=== PATIENT | female | born 1980 | race Caucasian/White ===

== ENCOUNTER 2016-05-13 14:27 | Emergency (ER) | payer BC, OTHER ==
[~2016-05-13] VITALS: Ht 167.6 cm; Wt 60.0 kg
[~2016-05-13 14:27] MED LIST: OXYC1SOL5 PO; PREN0.01 PO
[2016-05-13 14:29] VITALS: BP 171/101; PULSE 79; RESP 16; TEMP 97.8; O2SAT 100
[2016-05-13 14:53] VITALS: BP 163/93; PULSE 67; RESP 18; O2SAT 98
[2016-05-13] MEDS ORDERED: hydrALAZINE HCL 20 MG/ML VIAL IV PUSH ONE ×2 (15:00→15:30)
[2016-05-13] MEDS ORDERED: SODIUM CHLORIDE 0.9% FLUSH 5 ML FLUSH IVF PRN (15:00)
[2016-05-13 15:03] VITALS: O2SAT 100
[2016-05-13] MEDS ORDERED: diphenhydrAMINE HCL 50 MG/ML VIAL IVP ONE (15:15)
[2016-05-13] MEDS ORDERED: METOCLOPRAMIDE HCL 10 MG/2 ML VIAL IVP ONE (15:15)
[2016-05-13 15:26] VITALS: BP 135/87; PULSE 98
[2016-05-13 15:44] LABS: AUTOMATED NEUTROPHIL # 5.7 TH/MM3 (1.8-7.7); BASOPHIL # 0.1 TH/MM3 (0-0.2); BASOPHIL % 0.8 % (0.0-2.0); EOSINOPHIL % 0.2 % (0.0-4.0); HEMO FLAGS DIFF FINAL; LYMPH % 13.3 % (9.0-44.0); LYMPHOCYTE # 0.9 TH/MM3 (1.0-4.8); MEAN CORPUSCULAR HEMOGLOBIN 30.8 PG (27.0-34.0); MEAN CORPUSCULAR HGB CONC 33.9 % (32.0-36.0); MONO % 3.2 % (0.0-8.0); NEUT % 82.5 % (16.0-70.0); PLATELET COUNT 197 TH/MM3 (150-450); RED BLOOD COUNT 3.85 MIL/MM3 (4.00-5.30); RED CELL DISTRIBUTION WIDTH 13.9 % (11.6-17.2); WHITE BLOOD COUNT 6.9 TH/MM3 (4.0-11.0)
--- NOTE | 2016-05-13 15:45 | PD ---
HPI Chief Complaint: Hypertension Time Seen by Provider: 14:46 Travel History International Travel<30 days: No Contact w/Intl Traveler<30days: No Traveled to known affect area: No History of Present Illness HPI Patient is a pleasant 35-year-old female who presents the emergency department with complaint of headache, high blood pressure. Patient has a history of preeclampsia during with hypertension, spilling protein into her urine. This proteinuria has continued when she is not and she is followed by Dr. Nava of nephrology. Patient's 24 hour urine protein has always been less than 1 g and so she has never had formal biopsy. Patient states that over the last 24 hours she has felt increasingly dizzy, headache, nauseated. She was seen in clinic by Dr. Lynch, her [employer], who noted her to be hypertensive and 150s over 100s. She had 4+ protein in her urine and the clinic and Dr. Lynch had question for papilledema on exam. Patient is not a headachy person, does not have baseline headache of migraine, tension, cluster headache. She had a previous tubal ligation with her last and does not believe she could be . She was recently started on lisinopril by her PCP for hypertension. PFSH Past Medical History Hypertension: Yes Medical other: Yes (" some kind of kidney problems" ) ?: Not LMP: 05/13/16 : 5 Para: 5 Past Surgical History Section: Yes Social History Alcohol Use: Yes (occ) Tobacco Use: No Substance Use: No Allergies-Medications (Allergen,Severity, Reaction): Coded Allergies: No Known Allergies (Verified , 10/30/15) Reported Meds & Prescriptions Reported Meds & Active Scripts Active Oxycodone/Acetaminophen 5 mg/325 mg 5 mg/325 mg Tab 2 Tab PO Q4H PRN Reported Vit ( Plus) (Prenat Multivit/Swimming Pool Cleaner/Iron/Folic Ac) Tab 1 Tab PO DAILY continue while breast feeding Review of Systems Except as stated in HPI: all other systems reviewed are Neg Physical Exam Narrative GENERAL: Well-appearing female in no acute distress SKIN: Warm and dry. HEAD: Atraumatic. Normocephalic. EYES: Pupils equal and round. Funduscopic exam is limited due to lack of dilated eye exam but I do not appreciate any papilledema. No scleral icterus. No injection or drainage. ENT: No nasal bleeding or discharge. Mucous membranes pink and moist. NECK: Supple CARDIOVASCULAR: Regular rate and rhythm. No murmur appreciated. Initially hypertensive 170s, 140s upon recheck. RESPIRATORY: No accessory muscle use. Clear to auscultation. Breath sounds equal bilaterally. GASTROINTESTINAL: Abdomen soft, non-tender, nondistended. MUSCULOSKELETAL: No edema. NEUROLOGICAL: Awake and alert. No obvious cranial nerve deficits. Motor grossly within normal limits. Normal speech. PSYCHIATRIC: Appropriate mood and affect; insight and judgment normal. Data Data Last Documented VS Vital Signs Date Time Temp Pulse Resp B/P Pulse Ox O2 Delivery O2 Flow Rate FiO2 05/13/16 16:24 71 18 128/79 98 Room Air 05/13/16 14:29 97.8 Orders Basic Metabolic Panel (Bmp) (05/13/16 14:46) Complete Blood Count With Diff (05/13/16 14:46) Urinalysis - C+S If Indicated (05/13/16 14:46) Iv Access Insert/Monitor (05/13/16 14:46) Ecg Monitoring (05/13/16 14:46) Oximetry (05/13/16 14:46) Sodium Chloride 0.9% Flush (Ns Flush) (05/13/16 15:00) Ct Brain W/O Iv Contrast(Rout) (05/13/16 14:46) Hydralazine Inj (Apresoline Inj) (05/13/16 15:00) Diphenhydramine Inj (Benadryl Inj) (05/13/16 15:15) Metoclopramide Inj (Reglan Inj) (05/13/16 15:15) Hydralazine Inj (Apresoline Inj) (05/13/16 15:30) Labs Laboratory Tests Test 05/13/16 05/13/16 15:05 15:14 White Blood Count 6.9 TH/MM3 Red Blood Count 3.85 MIL/MM3 Hemoglobin 11.9 GM/DL Hematocrit 35.0 % Mean Corpuscular Volume 91.0 FL Mean Corpuscular Hemoglobin 30.8 PG Mean Corpuscular Hemoglobin 33.9 % Concent Red Cell Distribution Width 13.9 % Platelet Count 197 TH/MM3 Mean Platelet Volume 9.5 FL Neutrophils (%) (Auto) 82.5 % Lymphocytes (%) (Auto) 13.3 % Monocytes (%) (Auto) 3.2 % Eosinophils (%) (Auto) 0.2 % Basophils (%) (Auto) 0.8 % Neutrophils # (Auto) 5.7 TH/MM3 Lymphocytes # (Auto) 0.9 TH/MM3 Monocytes # (Auto) 0.2 TH/MM3 Eosinophils # (Auto) 0.0 TH/MM3 Basophils # (Auto) 0.1 TH/MM3 CBC Comment DIFF FINAL Differential Comment Sodium Level 136 MEQ/L Potassium Level 3.6 MEQ/L Chloride Level 100 MEQ/L Carbon Dioxide Level 27.0 MEQ/L Anion Gap 9 MEQ/L Blood Urea Nitrogen 15 MG/DL Creatinine 0.67 MG/DL Estimat Glomerular Filtration 101 ML/MIN Rate Random Glucose 74 MG/DL Calcium Level 8.4 MG/DL Urine Color YELLOW Urine Turbidity CLEAR Urine pH 6.5 Urine Specific [place] 1.020 Urine Protein 100 mg/dL Urine Glucose (UA) NEG mg/dL Urine Ketones 80 mg/dL Urine Occult Blood MOD Urine Nitrite NEG Urine Bilirubin NEG Urine Urobilinogen LESS THAN 2.0 MG/DL Urine Leukocyte Esterase NEG Urine RBC 15 /hpf Urine WBC 3 /hpf Urine Squamous Epithelial 1 /hpf Cells Urine Hyaline Casts 3 /lpf Urine Mucus FEW /lpf Microscopic Urinalysis Comment CULT NOT INDICATED MDM Medical Decision Making Medical Screen Exam Complete: Yes Emergency Medical Condition: Yes Medical Record Reviewed: Yes Differential Diagnosis 35-year-old female with history of underlying renal disease here with headache, nausea, dizziness and proteinuria. Differential includes renal dysfunction, renal failure, electrolyte abnormality, nephrotic syndrome, hypertension, tension headache, cluster headache, migraine headache. My suspicion for ICH is extremely low. Narrative Course Patient placed on monitor, IV established and blood obtained. Patient given 50 mg Benadryl, 10 mg Reglan, 5 mg hydralazine. CBC, BMP, urinalysis notable for [address] of the brain negative. Blood pressure improved. Patient will be discharged home to follow up with outpatient nephrology. Lisinopril will be increased from 10-20 mg daily. Diagnosis Primary Impression: Hypertension Qualified Code: I10 - Essential hypertension Additional Impression: Proteinuria Qualified Code: R80.9 - Proteinuria, unspecified type Referrals: Yariel Nava MD 3 days Primary Care Physician 3 days Med/Other Pt SpecificInfo: Existing Med Changed Scripts Lisinopril 20 Mg Tab20 Mg PO DAILY #30 TAB Ref 0 Prov:Onelia Vásquez MD 05/13/16 Disposition: 01 DISCHARGE HOME Condition: Stable Onelia Vásquez MD May 13, 2016 15:45
[2016-05-13 15:59] LABS: POTASSIUM 3.6 MEQ/L (3.5-5.1)
[2016-05-13 16:03] LABS: BLOOD, URINE MOD (NEG); COMMENT (UR) CULT NOT INDICATED; CULTURE IF INDICATED CULT NOT INDICATED; GLUCOSE,URINE NEG (NEG); HYALINE CAST, URINE 3 /lpf (RARE); KETONE, URINE 80 mg/dL (NEG); MUCUS URINE FEW /lpf (OCC); NITRITE,URINE NEG (NEG); PH, URINE 6.5 (5.0-8.5); SQUAMOUS EPITHELIAL CELL URINE 1 /hpf (0-5); URINE COLOR YELLOW (YELLW/STRAW)
--- NOTE | 2016-05-13 16:17 | RADRPT ---
EXAM DATE/TIME: 05/13/2016 15:48 [facility] COMPARISON: No previous studies available for comparison. INDICATIONS : Cephalgia. RADIATION DOSE: 56.35 CTDIvol (mGy) MEDICAL HISTORY : Hypertension. SURGICAL HISTORY : None. ENCOUNTER: Initial ACUITY: 1 day PAIN SCALE: 5/10 LOCATION: cranial TECHNIQUE: Multiple contiguous axial images were obtained of the head. Using automated exposure control and adjustment of the mA and/or kV according to patient size, radiation dose was kept as low as reasonably achievable to obtain optimal diagnostic quality images. FINDINGS: CEREBRUM: The ventricles are normal for age. No evidence of midline shift, mass lesion, hemorrha ge or acute infarction. No extra-axial fluid collections are seen. POSTERIOR FOSSA: The cerebellum and brainstem are intact. The 4th ventricle is midline. The cer ebellopontine angle is unremarkable. EXTRACRANIAL: The visualized portion of the orbits is intact. SKULL: The calvaria is intact. No evidence of skull fracture. CONCLUSION: Negative for an acute process. Costa Ahn MD FACR on May 13, 2016 at 16:11 Board Certified Radiologist. This report was verified electronically.
[2016-05-13 16:24] VITALS: BP 128/79; PULSE 71; RESP 18; O2SAT 98
[2016-05-13] MEDS ORDERED: LISI-515 PO (16:31)
== END 2016-05-13 16:54 | disposition home or self-care (01) ==
LOC: NEPE 14:27
DX: I10 Essential (primary) hypertension (principal); R80.9 Proteinuria, unspecified; R51 Headache
CPT/HCPCS: 70450; 80048; 81001; 85025; 96374; 96375; 99284; J0360; J1200; J2765